=== PATIENT | female | born 1955 | race Caucasian/White ===

== ENCOUNTER 2023-11-17 09:41 | Emergency (ER) | payer MEDICARE, SELFPAY ==
[2023-11-17 10:09] VITALS: BP 173/100; PULSE 84; RESP 16; TEMP 37.1; O2SAT 100
--- NOTE | 2023-11-17 10:39 | ED.URI ---
HPI - URI/Sore Throat General Chief Complaint: Upper Respiratory Infection Stated Complaint: head congestion/cough Time Seen by Provider: 11/17/23 10:46 Source: patient and RN notes reviewed Mode of arrival: ambulatory Limitations: no limitations History of Present Illness HPI Narrative: 67-year-old female presented for complaint of cough and chest congestion, occasional shortness of breath with exertion and wheezing, headache, nasal congestion. Onset 5 days. Taking [id number] Mucinex. Denies N/V/ D/F/C. MD elicited complaint: cough Related Data Home Medications Medication Instructions Recorded Confirmed dulaglutide 3 mg/0.5 mL 3 mg subcut WEEKLY 11/17/23 11/17/23 subcutaneous pen injector (Trulicity) duloxetine 20 mg capsule,delayed 20 mg PO BID 11/17/23 11/17/23 release levothyroxine 100 mcg tablet 100 mcg PO DAILY 11/17/23 11/17/23 losartan 50 mg tablet 50 mg PO DAILY 11/17/23 11/17/23 meloxicam 15 mg tablet 15 mg PO DAILY 11/17/23 11/17/23 metformin 500 mg tablet,extended 1,000 mg PO BID 11/17/23 11/17/23 release 24 hr pantoprazole 20 mg tablet,delayed 20 mg PO DAILY 11/17/23 11/17/23 release rosuvastatin 20 mg tablet 20 mg PO DAILY 11/17/23 11/17/23 Allergies Allergy/AdvReac Type Severity Reaction Status Date / Time No Known Allergies Allergy Unverified 07/12/12 14:52 Review of Systems Review of Systems: ROS per HPI All systems reviewed & are unremarkable except as noted in HPI and below PMFSH Past Medical History Medical History (Updated 11/17/23 @ 10:56 by Renetta Mishra APRN) Breast cancer Diabetes Surgical History Surgical History (Updated 11/17/23 @ 10:56 by Renetta Mishra APRN) H/O bilateral mastectomy Comments At time of signature, I have reviewed and agree with nursing past medical, surgical, social and family history unless otherwise noted. Please see nursing chart for further information. There is no relevant family history pertinent to the presenting complaint Exam Narrative: GENERAL: Mildly Ill-appearing, nontoxic no acute distress. EYES: PERRLA, conjunctivae clear ENT: Mucous membranes moist. TM pearly webber with dull light reflex bilaterally; no tragal tenderness. Oropharynx erythematous without lesions or exudate, no drooling, no hoarseness, no trismus, uvula midline. NECK: Supple. No lymphadenopathy CHEST: Clear to auscultation, breath sounds equal. scattered expiratory wheezing. HEART: Regular rate and rhythm. No murmur heard. SKIN: Warm, dry, no rash. NEURO: Alert and oriented x3. PSYCH: Normal mood and affect Course Course Emergency Course: Patient is aware of diagnosis, understands and agrees to treatment plan. Anticipatory guidance given. Patient agrees to follow-up as directed and is aware of reasons to seek care at the emergency department. Portions of this record may have been created with voice recognition software Level of Care: Express Care Visit Vital Signs Vital signs: Vital Signs Temperature 98.8 F 11/17/23 10:09 Pulse Rate 84 11/17/23 10:09 Respiratory Rate 16 11/17/23 10:09 Blood Pressure 173/100 H 11/17/23 10:09 Pulse Oximetry 100 11/17/23 10:09 Oxygen Delivery Room Air 11/17/23 10:09 Temperature 98.8 F 11/17/23 10:09 Pulse Rate 84 11/17/23 10:09 Respiratory Rate 16 11/17/23 10:09 Blood Pressure 173/100 H 11/17/23 10:09 Pulse Oximetry 100 11/17/23 10:09 Oxygen Delivery Room Air 11/17/23 10:09 reviewed MDM - URI/Sore Throat MDM Narrative Medical decision making narrative: Discussed physical exam findings and prescriptions. given her comorbidities will send antibiotic at this time. Advised supportive measures and signs/symptoms to go to the ER. Pt is appropriate for outpt treatment and f/u. Differential Diagnosis Differential diagnosis: Likely upper respiratory infection, sinusitis, viral infection and bronchitis Discharge Plan Discharge Clinical Impre
== END 2023-11-17 11:04 | disposition home or self-care (01) ==
PROVIDERS: Emergency Provider Nurse Practitioner Family; PCP Internal Medicine Geriatric Medicine
DX: J40 Bronchitis, not specified as acute or chronic (principal); E11.9 Type 2 diabetes mellitus without complications; Z85.3 Personal history of malignant neoplasm of breast; Z90.13 Acquired absence of bilateral breasts and nipples
CPT/HCPCS: 99213; G0463